=== PATIENT | female | born 1970 | race Caucasian/White ===

== ENCOUNTER 2024-10-14 11:40 | Emergency (ER) | payer OTHER, SELFPAY ==
--- NOTE | 2024-10-14 11:45 | ED_ITS ---
HPI - General Adult General Chief complaint: Skin/Abscess/Foreign Body Stated complaint: skin irritation Time Seen by Provider: 10/14/24 11:44 Source: patient Mode of arrival: ambulatory Limitations: no limitations History of Present Illness HPI narrative: Pt is a 54 y/o female presenting with c/o skin irritation. Pt reports sustaining sunburn on Saturday. States she initially had blue and black spots on my legs which have since resolved without intervention. Voices concern due to presence of fatigue, bodyaches that began today. Tx initiated [employer] includes aloe, ibuprofen. No known exposure to COVID, Flu, Strep, PNA. No additional complaints. Related Data Allergies Allergy/AdvReac Type Severity Reaction Status Date / Time No Known Allergies Allergy Unknown Unverified 10/14/24 11:58 Review of Systems Review of Systems: CONSTITUTIONAL: Reports body aches,fatigue, denies fever, chills, or sweats. EYES: Denies visual changes, redness, or discharge. ENT: Denies rhinorrhea, congestion, sore throat, or otalgia. CARDIOVASCULAR: Denies chest pain, palpitations, or edema. RESPIRATORY: Denies cough or dyspnea. GASTROINTESTINAL: Denies abdominal pain, nausea, vomiting, or diarrhea. GENITOURINARY: Denies dysuria or hematuria. SKIN: Reports rash, denies itching, or wounds. MUSCULOSKELETAL: Denies back pain, joint pain, or myalgia. NEUROLOGIC: Denies headache, numbness, tingling, or weakness. PSYCH: Denies depression or anxiety. All systems reviewed & are unremarkable except as noted in HPI and below Exam Narrative: GENERAL: Well-appearing, well-nourished, and in no acute distress. HEAD: Normocephalic, atraumatic. EYES: EOMI. No redness or drainage. Conjunctivae normal. ENT: Mucous membranes pink and moist. Nares clear. No rhinorrhea. TMs normal bilaterally. Throat normal. Uvula midline. NECK: Normal AROM. Supple. No lymphadenopathy. CHEST: No respiratory distress. Clear to auscultation. HEART: Regular rate and rhythm. No murmur appreciated. Normal peripheral pulses. ABDOMEN: Soft, nontender, nondistended, normal active bowel sounds. MUSCULOSKELETAL: No bony tenderness. EXTREMITIES: Normal range of motion. No edema. SKIN: Blanchable erythema noted to the anterior aspect of leena. thighs without blisters or any open wounds. Warm, dry. Capillary refill normal. Normal skin turgor. NEURO: No focal deficits. Alert and oriented x3. Gait steady. PSYCH: Normal affect. No signs of depression or anxiety. Course Course Level of Care: Express Care Visit Vital Signs Vital signs: Vital Signs Temperature 98.6 F 10/14/24 11:56 Pulse Rate 95 10/14/24 11:56 Respiratory Rate 16 10/14/24 11:56 Blood Pressure 144/85 H 10/14/24 11:56 Pulse Oximetry 100 10/14/24 11:56 Temperature 98.6 F 10/14/24 11:56 Pulse Rate 95 10/14/24 11:56 Respiratory Rate 16 10/14/24 11:56 Blood Pressure 144/85 H 10/14/24 11:56 Pulse Oximetry 100 10/14/24 11:56 Medical Decision Making MDM Narrative Medical decision making narrative: Discussed elevated blood pressure readings with patient and advised daily BP monitoring and f/u with PCP if persisting. Vital Signs Vital Signs: Vital Signs Temperature 98.6 F 10/14/24 11:56 Pulse Rate 95 10/14/24 11:56 Respiratory Rate 16 10/14/24 11:56 Blood Pressure 144/85 H 10/14/24 11:56 Pulse Oximetry 100 10/14/24 11:56 Temperature 98.6 F 10/14/24 11:56 Pulse Rate 95 10/14/24 11:56 Respiratory Rate 16 10/14/24 11:56 Blood Pressure 144/85 H 10/14/24 11:56 Pulse Oximetry 100 10/14/24 11:56 Discharge Plan Discharge Clinical Impression: 1st degree sunburn, Elevated blood pressure reading in office without diagnosis of hypertension Upper respiratory infection Qualifiers: URI type: unspecified viral URI Qualified Code(s): J06.9 - Acute upper respiratory infection, unspecified Patient Disposition: Home Condition: Stable Instructions: Sunburn (ED), Cold Symptoms (ED) Additional Instructions: Go straight to ER should your symptoms become worse or should any new symptoms develop Patient Language: Croatian Follow-up/Referrals: UNKNOWN,DOCTOR [Non-Staff] - 10/14/24 Time of Disposition: 12:08
[2024-10-14 11:56] VITALS: BP 144/85; PULSE 95; RESP 16; TEMP 37; O2SAT 100
== END 2024-10-14 12:16 | disposition home or self-care (01) ==
PROVIDERS: Emergency Provider Registered Nurse
DX: L55.0 Sunburn of first degree (principal); R03.0 Elevated blood-pressure reading, without diagnosis of hypertension; J06.9 Acute upper respiratory infection, unspecified
CPT/HCPCS: 99211; G0463